=== PATIENT | male | born 1980 | race Caucasian/White ===

== ENCOUNTER 2021-12-31 07:51 | Outpatient (REF) | payer MEDICARE, MEDICAID, SELFPAY ==
--- NOTE | ~2021-12-31 | MR_ITS ---
EXAMINATION: MR BRAIN WITHOUT AND WITH CONTRAST CLINICAL INFORMATION: Follow-up brain tumor. COMPARISON: MRI scan of the brain 09/10/2013. TECHNIQUE: Multiplanar, multisequence MRI of the brain was obtained before and after the intravenous administration of 10 mL Gadavist. FINDINGS: The study redemonstrates the right frontal DIRECTOR CHILD shunt catheter with the tip in the region of the right foramen of Michael. Cystic encephalomalacia is redemonstrated in the right anterior centrum semiovale, as well as in the left body of the corpus callosum. Susceptibility artifact is redemonstrated in the high right parietal region from an extracranial device, unchanged. The ventricles bilaterally are decompressed. No diffusion abnormalities are identified to suggest an acute or subacute infarct. No mass effect or midline shift is seen. There is extensive increased T2 and FLAIR signal around the lateral ventricles bilaterally, similar compared to prior imaging and more extensive on the right. There is also increased signal in the bilateral middle cerebellar peduncles. The study redemonstrates a well-defined 1.6 cm cystic area along the dorsal aspect of the right thalamus superiorly which is unchanged in size. Increased signal in the dorsal right thalamus and right tectal plate with slight prominence dorsally is unchanged. The flow void from the cerebral aqueduct is not visualized superiorly. Overall, there is marked diffuse volume loss of the supratentorial and infratentorial structures, not significantly changed compared to prior imaging and likely sequelae of prior therapy. No extra-axial fluid collections are seen. On postcontrast imaging, there is no abnormal parenchymal or leptomeningeal enhancement. There are multiple new foci of low gradient signal in the cerebellar hemispheres bilaterally, in the anterior and lateral right temporal lobe and in the basal ganglia bilaterally which are nonspecific, but may be therapy related. The cerebellar tonsils have normal contour and position, and the craniocervical junction appears normal. Marrow signal and midline structures are normal. The major intracranial flow-voids at the level of the rosebud of Quinn are preserved. The dural venous sinus flow-voids are maintained. The mastoid air cells are well-aerated. There is a small retention cyst anteriorly in the right maxillary sinus. MR/MR head/brain wo/w con IMPRESSION: 1. The study redemonstrates extensive chronic changes with unchanged position of a right frontal approach DIRECTOR CHILD shunt catheter. The ventricles are decompressed. There is extensive multicystic encephalomalacia bilaterally as described above, and there are extensive areas of hyperintense T2 and FLAIR signal in the periventricular and subcortical white matter, likely treatment related. 2. There is persistent contour abnormality of the superior tectal plate and posterior thalamus on the right with effacement of the superior cerebral aqueduct. There is no abnormal enhancement. No new masses are demonstrated. 3. There are multiple new foci of low gradient signal in the supratentorial and infratentorial regions which may be treatment related. 4. There are no acute bleeds or infarcts.
== END 2021-12-31 07:52 | disposition home or self-care (01) ==
LOC: HO.MRI 07:51
PROVIDERS: Visit Provider Psychiatry & Neurology Neurology
DX: G40.909 Epilepsy, unspecified, not intractable, without status epilepticus (principal)
CPT/HCPCS: 70553; A9585

== ENCOUNTER 2022-11-19 09:10 | Outpatient (REF) | payer MEDICARE, MEDICAID, SELFPAY ==
--- NOTE | ~2022-11-19 | XR_ITS ---
EXAMINATION: Lumbar spine and sacroiliac joint x-rays CLINICAL INFORMATION: Lumbar radiculopathy. Sacrococcygeal disorder. COMPARISON: None. TECHNIQUE: 3 views of the lumbar spine and 3 views of the sacroiliac joints FINDINGS: Lumbar spine: There is curvature of the lumbar spine to the left. Bone alignment is otherwise normal. Degenerative disc disease at L5-S1. Lower lumbar spine facet arthritis. Catheter projects over the abdomen suggestive of a BURN NURSE shunt. Constipation. Sacroiliac joints: Bone alignment is normal. No fracture or dislocation. Normal joint spaces. XR/XR lumbar spine 2-3V IMPRESSION: Curvature of the lumbar spine to the left. Degenerative disc disease at L5-S1. Normal-appearing sacroiliac joints.
--- NOTE | ~2022-11-19 | XR_ITS ---
EXAMINATION: Lumbar spine and sacroiliac joint x-rays CLINICAL INFORMATION: Lumbar radiculopathy. Sacrococcygeal disorder. COMPARISON: None. TECHNIQUE: 3 views of the lumbar spine and 3 views of the sacroiliac joints FINDINGS: Lumbar spine: There is curvature of the lumbar spine to the left. Bone alignment is otherwise normal. Degenerative disc disease at L5-S1. Lower lumbar spine facet arthritis. Catheter projects over the abdomen suggestive of a PATENT PARALEGAL shunt. Constipation. Sacroiliac joints: Bone alignment is normal. No fracture or dislocation. Normal joint spaces. XR/XR sacroiliac joint 1-2V IMPRESSION: Curvature of the lumbar spine to the left. Degenerative disc disease at L5-S1. Normal-appearing sacroiliac joints.
== END 2022-11-19 09:11 | disposition home or self-care (01) ==
LOC: HO.HMGCX 09:10
PROVIDERS: PCP Internal Medicine; Visit Provider Nurse Practitioner Family
DX: M53.3 Sacrococcygeal disorders, not elsewhere classified (principal); M54.16 Radiculopathy, lumbar region
CPT/HCPCS: 72100; 72200

== ENCOUNTER 2023-10-30 08:02 | Outpatient (AMB) | payer MEDICARE, MEDICAID, SELFPAY ==
--- NOTE | 2023-10-30 08:11 | AM.OFFWIN_ITS ---
Intake Vital Signs 10/30/23 08:12 Weight 255 lb BP 124/80 Blood Pressure Location Rt brachial Position Sitting Pulse 100 Pulse Source Pulse Oximeter Pulse Oximetry (%) 99 Oxygen Delivery Method Room Air Intake Visit Reasons: EP sore throat Intake Note: Patient here for sore throat, chest pain, fevers for about 2 weeks. Patient Tobacco Use Status: Never used Tobacco Allergies No Known Allergies Allergy (Verified 10/30/23 08:13) Do you need a note to return to daycare/school/sports/work: No HPI HPI Comments History of Present Illness Details 43 y/o male patient presents to walk in clinic with c/o URI symptoms x 2 weeks. Reports bilateral ear pain and blocked. [facility] Social History Patient Tobacco Use Status: Never used Tobacco Review of Systems Const All systems reviewed & are unremarkable except as noted in HPI and below Physical Exam Vital Signs: Last Vital Signs Pulse 100 10/30/23 08:12 BP 124/80 10/30/23 08:12 Pulse Ox 99 10/30/23 08:12 Oxygen Delivery Method Room Air 10/30/23 08:12 Const General: comfortable, no acute distress and poor hygiene Nutritional Appearance: obese Orientation/consciousness: patient oriented x3 HEENT Head: Yes normocephalic Ears: external ears normal and TM abnormal obstructed by cerumen bilateral General nose exam: Normal nasal mucous membranes and turbinates present Face and sinus: Yes sinuses nontender Mouth: Abnormal oral and palatal mucosa present erythematous and white patches Throat: Yes posterior oropharynx normal and Yes postnasal drainage Resp Effort & Inspection: normal respiratory effort, able to speak in complete sentences, no audible wheezes and no cough Auscultation: clear to auscultation bilaterally, no crackles, no rales, no rhonchi and no wheezes Cardio Rate: regular rate Rhythm: regular rhythm Neuro General: patient oriented x3 Office Procedures Cerumen Removal From which ear canal was the cerumen removed: bilateral Removal: irrigation Notes: patient tolerated procedure well [id number] Irrigation/Lavage Results AMB Rapid Strep AMB Rapid Strep Negative Last Edit by JEREL Peña on 10/30/23 08:27 Results Reviewed Results Reviewed: Laboratory Last Values Strep Scn Rapid Clinic Negative 05/09/24 08:25 Assessment & Plan Assessment & Plan (1) Acute bacterial pharyngitis: Code(s): J02.8 - Acute pharyngitis due to other specified organisms; B96.89 - Other specified bacterial agents as the cause of diseases classified elsewhere Plan: - Take medications as directed - OTC sore throat remedies - Acetaminophen for pain relief - Rest and hydrate well with warm fluids (2) Impacted cerumen of both ears: Code(s): H61.23 - Impacted cerumen, bilateral Plan: - In office Ear lavage - TM clear and normal Orders: Orders AMB Rapid Strep Screen Today Z13.9 - Encounter for screening, unspecified Medications: New prednisone 50 mg PO DAILY 5 tabs 0RF 5 days B96.89 - Other specified bacterial agents as the cause of diseases classified elsewhere, J02.8 - Acute pharyngitis due to other specified organisms penicillin V potassium 500 mg PO TID 30 tabs 0RF 10 days B96.89 - Other specified bacterial agents as the cause of diseases classified elsewhere, J02.8 - Acute pharyngitis due to other specified organisms Coding Level of Care Code Est Pt Level 3 (96367) Diagnoses Acute bacterial pharyngitis J02.8; B96.89 Impacted cerumen of both ears H61.23 CPT Codes Office Procedure - CPT: 30950-Wqt Irrigation/Lavage ([id number]) Time Spent (min) 15
[2023-10-30 08:12] VITALS: BP 124/80; PULSE 100; O2SAT 99
== END 2023-10-30 09:04 | disposition home or self-care (01) ==
PROVIDERS: PCP Internal Medicine; Visit Provider Nurse Practitioner Family
DX: J02.9 Acute pharyngitis, unspecified (principal); H61.23 Impacted cerumen, bilateral
CPT/HCPCS: 69209; 87880; 99213

== ENCOUNTER 2025-02-16 08:41 | Outpatient (AMB) | payer MEDICARE, MEDICAID, SELFPAY ==
--- NOTE | 2025-02-16 08:53 | MHC.OFFVIS ---
Intake Visit Reasons: 6 month epilesy Accompanied by: Father Allergies No Known Allergies Allergy (Verified 02/16/25 08:57) Medication List - Last Reconciled 02/16/25 by Virginia Horton CNP aspirin 325 mg PO DAILY cyclobenzaprine 10 mg PO BID PRN 7 days dicyclomine 10 mg PO Q6H PRN divalproex 500 mg PO TID levetiracetam 750 mg PO BID penicillin V potassium 500 mg PO TID 10 days prednisone 50 mg PO DAILY 5 days HPI Comments Details: He was doing okay. No seizures. He was taking levetiracetam 750mg twice a day and Depakote 500mg three times a day. No medication side effects. No significant headaches or dizziness. Balance was off at times, but no falls. Sleep was okay. Back surgery in 03/2023. Last witnessed Sz on 06/04/14 with tonic contraction, unresponsivenss, and guttural sounds lasting 1 minute. No incontinence or tongue biting. He developed headaches and balance problems at age 6 and was found to have a brain tumor. He was seen in [facility] at that time. 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 The tumor was not treated surgically. He had hydrocephalus and was shunted. His third shunt revision was in 07/2011 with a right SUPERVISOR METAL FABRICATING shunt done at [facility]. When the shunt malfunction, he had problems with his balance and headaches. His balance is fairly stable. Ever since his first surgery he's had problems with his memory. [facility] Medical History (Updated 02/16/25 @ 08:56 by Virginia Horton CNP) Brainstem tumor Neoplasm, brain Epilepsy Memory loss Hydrocephalus, unspecified Social History Patient Tobacco Use Status: Never used Tobacco Review of Systems Const Denies chills, Denies daytime sleepiness, Denies difficulty sleeping, Denies fatigue, Denies fever(s), Denies frequent falls, Denies headache(s), Denies increased appetite, Denies poor appetite, Denies snoring, Denies weakness, Denies weight gain and Denies weight loss Eyes Denies loss of vision ENT Denies vertigo, Denies dizziness, Denies headache(s) and Denies neck pain Card Denies chest pain at rest, Denies chest pain with activity, Denies syncope, Denies leg edema, Denies palpitations, Denies dyspnea and Denies dyspnea on exertion Resp Denies cough, Denies dyspnea, Denies dyspnea on exertion and Denies snoring GI Denies abdominal pain, Denies constipation, Denies heartburn, Denies diarrhea and Denies nausea Denies urinary frequency, Denies urinary incontinence and Denies urinary urgency Musc Denies abnormal gait, Denies back pain, Denies myalgias, Denies arthralgias, Denies neck pain, Denies numbness and Denies tingling Neuro Denies abnormal gait, Denies vertigo, Denies dizziness, Denies syncope, Denies frequent falls, Denies headache(s), Denies lack of coordination, Denies loss of vision, Reports memory loss, Denies numbness, Denies Other visual disturbances, Denies restless legs, Denies seizure-like activity, Denies tingling, Denies paresthesias, Denies tremor(s), Denies weakness and Reports other (balance difficulty) Psych Denies anxiety, Denies depression, Denies auditory hallucinations, Reports memory loss and Denies visual hallucinations Endo Denies fatigue and Denies palpitations Physical Exam Const Other: General Appearance:? normal, in no acute distress. Heart:? S1, S2 normal, no murmurs. Lungs:? clear anteriorly and posteriorly. Musculoskeletal:? normal. Extremities:? no edema. Psych:? alert, oriented, cognitive function intact, cooperative with exam. Neuro Other: Abnormal Neurological Findings:?A right parietal SUPERVISOR METAL FABRICATING shunt. Slow filling of the shunt with easy emptying. Mild truncal ataxia on tandem walking Mental Status: alert and oriented X 3. Normal attention, orientation, memory, and affect. Cranial Nerves: Pupils are equal, round, and reactive to light. External ocular muscles are intact. Visual quiroz are full, no ptosis. Face is symmetrical, no facial weakness or droop. Facial sensations are normal. Tongue protrudes in midline. Palate elevates symmetrically. Shoulder shrugging is normal Motor Examination: Normal muscle tone, bulk and strength. No atrophy or fasciculations. No drift of the extended upper extremities. DTR 2+. Plantars are flexor. Sensory Exam: Normal light touch, temperature, pinprick, vibration, and joint-position sensations. Rhomberg sign is absent. Coordination: No ataxia. No titubation. Gait Exam: Within normal limits. Cerebellar Signs: [id number] is okay. Extrapyramidal System: No tremor, rigidity with normal facial expressions. No bradykinesia. No bradyphrenia. Normal arm swing and posture. No propulsion or retropulsion. Speech: Normal. Results Reviewed Results Reviewed: 06/14/14 EEG is considered abnormal due to focal abnormality in the right parietal area suggestive of a right hemisphere focus of cerebral irritability. 09/14/13 EEG: This is a borderline abnormal EEG due to some scattered frontocentral slowing and rare bifrontal sharp transients suggesting mild cerebral dysrhythmia. These are nonspecific findings. 08/2013 MRI shows radiation related white matter changes. Defomity of tectal plate at site of previous tumor. Shunt in place. 01/11 MRI brain unchanged Assessment & Plan Assessment & Plan (1) Seizure disorder: Code(s): G40.909 - Epilepsy, unspecified, not intractable, without status epilepticus Category: Medical Plan: Continue levetiracetam 750mg 1 tablet twice a day. Continue divalproex sodium tablet delayed release 500mg 1 tablet three times a day. (2) Hydrocephalus, unspecified: Code(s): G91.9 - Hydrocephalus, unspecified Category: Medical Qualifiers: Hydrocephalus type: unspecified Qualified Code(s): G91.9 - Hydrocephalus, unspecified (3) S/P SUPERVISOR METAL FABRICATING shunt: Code(s): Z98.2 - Presence of cerebrospinal fluid drainage device Category: Surgical Plan . Coding Level of Care Code Est Pt Level 4 (03102) Diagnoses Seizure disorder G40.909 Hydrocephalus, unspecified type G91.9 Hydrocephalus type: unspecified S/P SUPERVISOR METAL FABRICATING shunt Z98.2
--- OUTSIDE RECORDS SUMMARY | 2025-02-16 09:04 | XMS_ITS | Clinical Summary ---
Author Organization [facility] Address [address] [place] [address] Care Team Providers Care Filenet Admin Name Role Phone Unavailable Primary Care Provider Unavailabl e Allergies No known active allergies Medications Medication Sig Dispensed Refills Start Date End Date Status methylPREDNISolone (MEDROL DOSEPACK) 4 MG tablet follow package directions 21 tablet 0 02/25/2023 Active divalproex (DEPAKOTE) [address] tablet Take 1 tablet (500 mg total) by mouth 3 (three) times a day. 0 01/30/2023 Active levETIRAcetam (KEPPRA) 750 MG tablet Take 1 tablet (750 mg total) by mouth 2 (two) times a day. 0 01/01/2023 Active dicyclomine (BENTYL) 10 MG capsule Take 1 capsule (10 mg total) by mouth 4 (four) times a day before meals and at bedtime. 0 02/08/2023 Active Social History Tobacco Use Types Packs/Day Years Used Date Smoking Tobacco: Never Smokeless Tobacco: Never Tobacco Cessation:Counseling Given: Not Answered Alcohol Use Standard Drinks/Week Comments Never 0 (1 standard drink = 0.6 oz pur e alcohol) Sex and Gender Information Value Date Recorded Sex Assigned at Not on file Gender Identity Not on file Sexual Orientation Not on file Job Start Date Occupation Industry Not on file Not on file Not on file Last Filed Vital Signs Vital Sign Reading Time Taken Comments Blood Pressure 125/84 02/25/2023 1:37 PM EDT Pulse 79 02/25/2023 1:37 PM EDT Temperature 36.6 C (97.8 F) 02/25/2023 1:37 PM EDT Respiratory Rate - - Oxygen Saturation 98% 02/25/2023 1:37 PM EDT Inhaled Oxygen Concentration - - Weight 97.5 kg (215 lb) 03/11/2023 2:24 PM EDT Height 188 cm (6' 2 ) 03/11/2023 2:24 PM EDT Body Mass Index 27.6 03/11/2023 2:24 PM EDT Plan of Treatment Health Maintenance Due Date Last Done Comments Hepatitis B Vaccines (1 of 3 - 3-dose series) 1979 Hepatitis C Screening 1979 COVID-19 Vaccine (#1) 03/06/1980 Depression Screening 1991 Preventative Health Evaluation 09/03/1997 DTap / Tdap / Td (2 - Td or Tdap) 05/30/2020 05/30/2010 Colon Cancer Screening (Colonoscopy) 09/03/2024 Influenza Vaccine (#1) 2025 9, 03/22/2018, 03/11/2017, Additional history exists Pneumococcal Vaccine Aged Out 08/02/2011 No long er eligible based on patient's age to complete this topic RSV Ped < 20 months Aged Out No longe r eligible based on patient's age to complete this topic
--- OUTSIDE RECORDS SUMMARY | 2025-02-16 09:04 | XMS_ITS ---
Author Name [facility] Organization Unknown Encounters Encounter Type Encounter Reason Primary Diagnosis Location Date Ambulatory [facility] 04/02/2024 Care Team Organization Name Specialty Phone Email Start Date End Da te [facility] 2024
--- OUTSIDE RECORDS SUMMARY | 2025-02-16 09:04 | XMS_ITS | Clinical Summary ---
Author Organization [employer] Address [address] [place] [address] Care Team Providers Care Pizzamaker Name Role Phone Unavailable Primary Care Provider Unavailabl e Social History Tobacco Use Types Packs/Day Years Used Date Smoking Tobacco: Never Assessed Sex and Gender Information Value Date Recorded Sex Assigned at Male 04/22/2022 10:24 AM EDT Legal Sex Male 10:24 AM EDT Gender Identity Not on file Sexual Orientation Not on file Plan of Treatment Health Maintenance Due Date Last Done Comments CT Colonography 1979 Colonoscopy 1979 Colorectal Cancer Screening 1979 Depression Screening 1979 FIT DNA/Cologuard 1979 FIT 1979 FOBT 1979 Lipid Panel 1979 Sigmoidoscopy 1979 Disability Screening 1979 Alcohol/Substance Use Screening 1991 Tobacco Screening 1991 Family Planning (PISQ) 09/03/1994 HPV Vaccines (1 - Male 3-dos e series) 09/03/1994 DTaP/Tdap/Td Vaccines (1 - Tdap) 09/03/1998 Hepatitis B Vaccines (1 of 3 - 19+ 3-dose series) 09/03/1998 COVID-19 Vaccine ( - 2023-2 5 season) 2024 Influenza Vaccine (#1) 2025 Zoster Vaccines (1 of 2) 09/03/2029 RSV Patients and Pa tients Aged 60 years or older (1 - 1-dose 75+ series) 09/03/2054 HIB Vaccines Aged Out No longer eligi ble based on patient's age to complete this topic Hepatitis A Vaccines Aged Out No long er eligible based on patient's age to complete this topic IPV Vaccines Aged Out No longer eligi ble based on patient's age to complete this topic Meningococcal B Vaccine Aged Out No l onger eligible based on patient's age to complete this topic Meningococcal Vaccine Aged Out No elba dustin eligible based on patient's age to complete this topic Pneumococcal Vaccine: Pediat rics (0 to 5 Years) and At-Risk Patients (6 to 49) Years Aged Out No longer eligible b ased on patient's age to complete this topic RSV under 20 months Aged Out No longe r eligible based on patient's age to complete this topic Rotavirus Vaccines Aged Out No longer eligible based on patient's age to complete this topic
--- OUTSIDE RECORDS SUMMARY | 2025-02-16 09:04 | XMS_ITS | Clinical Summary ---
Author Organization [facility] Address [address] [place] [address] Care Team Providers Care Rn Urology Name Role Phone Nathaniel Hdez MD Primary Care Provider [phone] Allergies No known active allergies Medications ketoconazole (NIZORAL) 2 % shampoo APPLY DAILY AND LATHER FOR 15 MINUTES 3 Active lidocaine (ZTlido) 1.8 % adhesive patch,medicated Apply 1 Patch topically 2 times daily as needed (pain). 3 Active divalproex (DEPAKOTE) [address] tablet Take 500 mg by mouth 3 times daily. Active levETIRAcetam (KEPPRA) 750 mg tablet Take 750 mg by mouth 2 times daily. Active dicyclomine (BENTYL) 10 mg capsuleIndicati ons:Mixed irritable bowel syndrome TAKE 1 CAPSULE BY MOUTH 4 TIMES DAILY (BEFORE MEALS AND NIGHTLY). 120 capsule 5 Active Active Problems Problem Noted Date Diagnosed Date Hydrocephalus (CMS/HCC V24, CMS/HCC V28) 024 Overview (06/18/2024): repaired as child. Has a PRODUCT SAFETY ADMINISTRATOR shunt. Lumbar disc herniation with radiculopathy 2022 Overview (06/18/2024): Last Assessment & Plan: Patient is 2 weeks s/p right L4-5 minimally invasive discectomy, he has some residual right leg pain, states he still gets a pulling sensation behind the knee, approximately 6/10, but it is improved compared to his pain level preop. His dad states he notes he is getting around better postop, however he still does not walk much throughout the day. He has not had any wound drainage, fevers. Mr. Chacon is doing well postop and hopefully will note continued improvements as things heal, we talked about working on increasing his walking daily as tolerated, I gave him a prescription for physical therapy to help him with flexibility, stamina, core strengthening. His father states he may not want to do physical therapy because when he sees what they are expecting of him he might feel it is too hard. He can follow-up with Dr. Caldera in 6 weeks if he has residual symptoms at that time. I asked him to call with any concerns or questions. All questions answered on today's visit. Gallstones 10/26/2020 Hepatic steatosis 10/26/2020 Obesity (BMI 30.0-34.9) 10/26/2020 Seizures ([facility] V24, [facility] V28) 02/09/2020 Overview (06/18/2024): Dr. Banks Cauda equina compression ([facility] V24, [facility] V 28) 07/15/2019 Irritable bowel syndrome wit h both constipation and diarrhea 10/10/2017 Immunizations Name Administration Dates Next Due Influenza Quadravalent, MDCK , 0.5ml, preservative free (Flucelvax) 6mo and older 03/04/2024,03/04/2023,03/11/2019,2017 Influenza Quadravalent, MDCK , 0.5ml, with preservative (Flucelvax) 6mo and older 03/11/2017 Influenza trivalent, 0.5mL, preservative free (Fluarix; FluLaval; Fluzone) ages 6mo and older (Afluria) 3 years and older 03/25/2022,05/27/2021,04/02/2015,2013,05/05/2012,05/30/2010 Moderna (age 6mo-5yr) Bivale nt Additional Dose, COVID-19 03/25/2022 Tdap Tetanus diptheria acell ular pertussis (Boostrix; Adacel) 7yo and older 03/04/2023,05/30/2010 Surgical History Surgery Date Site/Laterality Comments OTHER SURGICAL HISTORY PROCEDURE: BRAIN SURGERY USING COMPUTER; COMMENT: for hydrocephalus OTHER SURGICAL HISTORY 2012 PROCEDURE: HISTORICAL SHUNT REVISION; COMMENT: V-P shunt revision CHOLECYSTECTOMY 11/22/2020 N/A PROCEDURE: [place] LAPAROSCOPY SURG CHOLECYSTECTOMY; COMMENT: Dr. Zak Marqeuz, [facility] BACK SURGERY 05/31/2014 PROCEDURE: HISTORICAL BACK SURGERY; COMMENT: Rt L3-4 MLD BACK SURGERY 02/12/2019 PROCEDURE: HISTORICAL BACK SURGERY; COMMENT: Lt L5-S1 mld BACK SURGERY 04/08/2023 PROCEDURE: HISTORICAL BACK SURGERY; COMMENT: Right L4-5 discectomy, Dr. Caldera Medical History Medical History Date Comments Hydrocephalus (CMS/HCC V24, CMS/HCC V28) DX:Hydrocephalus (HCC); COMMENT: repaird as child Hypothyroid DX:Hypothyroid Chronic diarrhea 08/04/2017 DX:Chronic diar mikaela S/P PRODUCT SAFETY ADMINISTRATOR shunt 10/10/2017 DX:S/P PRODUCT SAFETY ADMINISTRATOR shunt; COMMENT: Placed in [place] in childhood, revised 2012. Family History Medical History Relation Name Comments Hypertension Father Other cancer Maternal Grandfather Heart attack Paternal Grandfather Other cancer Paternal Grandmother Relation Name Status Comments Father Maternal Grandfather Paternal Grandfather Paternal Grandmother Social History Tobacco Use Types Packs/Day Years Used Date Smoking Tobacco: Never Smokeless Tobacco: Never Alcohol Use Standard Drinks/Week Comments Not Currently 0 (1 standard drink = 0.6 oz pur e alcohol) Sex and Gender Information Value Date Recorded Sex Assigned at Male 05/15/2024 3:37 PM EST Legal Sex Male 11:15 PM EST Gender Identity Male 05/15/2024 3:37 PM EST Sexual Orientation Straight 05/15/2024 3: 37 PM EST Obstetrics History Last Filed Vital Signs Vital Sign Reading Time Taken Comments Blood Pressure 102/60 03/04/2024 8:59 AM EDT Pulse 88 03/04/2024 8:59 AM EDT Temperature - - Respiratory Rate - - Oxygen Saturation - - Inhaled Oxygen Concentration - - Weight 113 kg (249 lb 12.8 oz) 03/04/2024 8:59 A M EDT Height 185.4 cm (6' 1 ) 03/04/2024 8:59 AM EDT Body Mass Index 32.96 03/04/2024 8:59 AM EDT Plan of Treatment Upcoming Encounters Date Type Department Care Team (Late st Contact Info) Description 03/14/2025 9:00 AM EDT Office Visit Adult Medicine [facility] [address] [place] [address] Nathaniel Hdez MD [address] [place] [id number] Health Maintenance Due Date Last Done Comments Hepatitis B Vaccines (1 of 3 - 19+ 3-dose series) 09/03/1998 Pneumococcal Vaccine: Pediatrics (0 to 5 Years) and At-Risk Patients (6 to 49 Years) (2 of 2 - PCV) 08/02/2012 08/02/2011 Colorectal Cancer Screening: Colonoscopy 06/01/2022 HIV Screening 06/01/2022 Hepatitis C Screening 06/01/2022 Social Influencers of Health Screening 06/01/2022 COVID-19 Vaccine ( season) 2024 05/12/2023, 03/25/2022, 05/27/2021, Additional history exists Depression Screening 06/23/2024 03/04/2024 Influenza Vaccine (#1) 2025 , 03/04/2024, 03/04/2023, Additional history exists Cholesterol Screening (Lipid Panel) 03/04/2029 03/04/2024, 03/04/2024 DTaP,Tdap,and Td Vaccines (3 - Td or Tdap) 03/04/2033 03/04/2023, 05/30/2010 HIB Vaccines Aged Out No longer eligi ble based on patient's age to complete this topic HPV Vaccines Aged Out No longer eligi ble based on patient's age to complete this topic Hepatitis A Vaccines Aged Out No long er eligible based on patient's age to complete this topic IPV Vaccines Aged Out No longer eligi ble based on patient's age to complete this topic MMR Vaccines Aged Out No longer eligi ble based on patient's age to complete this topic Meningococcal ACWY Vaccine Aged Out N o longer eligible based on patient's age to complete this topic Meningococcal B Vaccine Aged Out No l onger eligible based on patient's age to complete this topic RSV Immunization Patients Under 20 months Aged Out No longer eligible based on patient's age to complete this topic Varicella Vaccines Aged Out No longer eligible based on patient's age to complete this topic Procedures Procedure Name Priority Date/Time Associated Diagnosis Comments DEPRESSION SCREENING Routine 03/04/2024 LIPID PANEL Routine 03/04/2024 from Last 3 Months or Most Recently Relevant to Health Maintenance Results * Hm Depression Screening (03/04/2024) HM Depression Screening abstracted Historical Provider HEALTH MAINTENANCE Final Result * (ABNORMAL) Lipid panel (03/04/2024) LDL/HDL Ratio 6(A) 0 - 4 Triglycerides 139 0 - 150 mg/dL Cholesterol 192 0 - 200 mg/dL HDL 33(A) >=40 mg/dL LDL Cholesterol 132(A) 0 - 100 mg/dL Blood Venous blood specimen / Unknown Historical Provider LAB BLOOD ORDERABLES Jessica l Result from Last 3 Months or Most Recently Relevant to Health Maintenance Advance Directives Documents on File Type Date Recorded Patient Business Office Assistant Expl anation Health Care Decision (hx) 06/02/2014 AD BOOTHE DIRECTIVE Health Care Decision (hx) 06/02/2014 AD BOOTHE DIRECTIVE Health Care Decision (hx) 06/02/2014 AD BOOTHE DIRECTIVE Health Care Decision (hx) 06/02/2014 AD BOOTHE DIRECTIVE Health Care Decision (hx) 06/02/2014 AD BOOTHE DIRECTIVE Health Care Decision (hx) 05/31/2014 AD BOOTHE DIRECTIVE Health Care Decision (hx) 05/31/2014 AD BOOTHE DIRECTIVE Health Care Decision (hx) 05/31/2014 AD BOOTHE DIRECTIVE Health Care Decision (hx) 05/31/2014 AD BOOTHE DIRECTIVE Health Care Decision (hx) 05/31/2014 AD BOOTHE DIRECTIVE Care Teams Rn Urology Relationship Specialty Start Date End Date Nathaniel Hdez MD [phone] (work) [facility] - General 04/05/10
--- OUTSIDE RECORDS SUMMARY | 2025-02-16 09:04 | XMS_ITS | Encounter Summary ---
Author Organization [employer] [facility] Address [address] [place] [address] Care Team Providers Care Radius Grinder Name Role Phone Unavailable Primary Care Provider Unavailabl e Encounter Details Date Type Department Care Team (Latest Contact Info) Description 03/24/2019 Abstract C CONVERSIONS Dental, Provider, DDS Social History Tobacco Use Types Packs/Day Years Used Date Smoking Tobacco: Never Assessed Sex and Gender Information Value Date Recorded Sex Assigned at Male 04/22/2022 10:24 AM EDT Legal Sex Male 10:24 AM EDT Gender Identity Not on file Sexual Orientation Not on file documented as of this encounter Plan of Treatment Not on file documented as of this encounter Visit Diagnoses Not on filedocumented in this encounter
== END 2025-02-16 09:05 | disposition home or self-care (01) ==
LOC: HO.HSM 08:42
PROVIDERS: PCP Internal Medicine; Referring Provider Internal Medicine; Visit Provider Registered Nurse
DX: G40.909 Epilepsy, unspecified, not intractable, without status epilepticus (principal); G91.9 Hydrocephalus, unspecified; Z98.2 Presence of cerebrospinal fluid drainage device
CPT/HCPCS: 99214

== ENCOUNTER → 2025-02-16 08:41 | Outpatient (BNVA) | payer MEDICARE, MEDICAID, SELFPAY | PROVIDERS: PCP Internal Medicine; Referring Provider Internal Medicine; Visit Provider Registered Nurse | DX: G40.909 Epilepsy, unspecified, not intractable, without status epilepticus (principal); G91.9 Hydrocephalus, unspecified; Z98.2 Presence of cerebrospinal fluid drainage device | CPT/HCPCS: 99212 ==